=== PATIENT | male | born 1955 | race Caucasian/White ===

== ENCOUNTER 2018-02-28 07:45 | Outpatient (CLI) | payer BC ==
--- NOTE | 2018-02-28 10:30 | ULT ---
RIGHT UPPER QUADRANT ULTRASOUND: Date: 02/28/18 HISTORY: Elevated LFTs. FINDINGS: The liver demonstrates increased echogenicity consistent with fatty infiltration. No focal mass or in trahepatic ductal dilatation is seen. The patient is post cholecystectomy. The pancreas is not well v isualized due to overlying bowel gas. The common duct measures 5.0 mm in diameter. The right kidney i s normal. No free fluid is seen in the right upper quadrant. IMPRESSION: 1. Fatty liver. 2. Status post cholecystectomy. POS: OFF
== END 2018-02-28 07:46 | disposition home or self-care (01) ==
LOC: BICULT 07:45
PROVIDERS: ATTEND Internal Medicine Gastroenterology
DX: R10.13 Epigastric pain (principal); K76.0 Fatty (change of) liver, not elsewhere classified; Z90.49 Acquired absence of other specified parts of digestive tract
CPT/HCPCS: 76705